=== PATIENT | female | born 1990 | race Two or more races ===

== ENCOUNTER 2019-04-04 22:48 | Observation (INO) | payer MEDICAID ==
[~2019-04-04] VITALS: Ht 165.1 cm; Wt 74.8 kg
[2019-04-04] MEDS ORDERED: FERR1TAB36 PO (23:22)
[2019-04-04] MEDS ORDERED: PREN-96 PO (23:22)
[2019-04-04 23:32] LABS: Urine Bacteria FEW /hpf (None Seen); Urine Blood 1+ /uL (Negative); Urine Hyaline Cast FEW /lpf (0 - 2); Urine Specific Gravity 1.005 (1.001-1.035); Urine WBC 353 /hpf (0 - 5); Urine WBC Clumps PRESENT /hpf (None Seen)
[2019-04-04 23:59] LABS: Alcohol, Urine < 3.0 mg/dL (0-5); Amphetamine Screen, Urine NEGATIVE (NEGATIVE); Barbiturate Scree,Urine NEGATIVE (NEGATIVE); Benzodiazephine Screen, Urine NEGATIVE (NEGATIVE); Cannabinoid Screen, Urine NEGATIVE (NEGATIVE); Cocaine Screen, Urine NEGATIVE (NEGATIVE); Opiate Scree,Urine NEGATIVE (NEGATIVE); Phencyclidine Screen, Urine NEGATIVE (NEGATIVE)
[2019-04-05] MEDS: BUTORPHANOL TARTRATE 2 MG/1 ML VIAL IV PRN ×2 (00:29→04:43)
[2019-04-05] MEDS ORDERED: ceFAZolin 1GM 2 GM in D5W 5% 100 ML IV ONE (00:45)
[2019-04-05] MEDS ORDERED: NIFEdipine 10 MG CAP PO ONE (00:45)
[2019-04-05] MEDS ORDERED: ceFAZolin 1GM/50ML 100 ML IV ONE (00:51)
[2019-04-05] MEDS ORDERED: NIFEdipine 10 MG CAP ONE (00:51)
[2019-04-05] MEDS ORDERED: TERBUTALINE SULFATE 1 MG/ML 1ML VIAL SC ONE ×2 (01:35→01:45)
[2019-04-05 04:06] LABS: Basophils # (auto) 0 uL; Basophils % (auto) 0.2 % (0.0-2.0); Eosinophils # (auto) 0 uL; Hematocrit 35.5 % (36.0-46.0); Hemoglobin 12.1 g/dL (12.2-16.2); Lymphocytes # (auto) 1.2 uL; Lymphocytes % (auto) 11.6 % (10.0-50.0); Mean Corpuscular Hemoglobin 28.8 pg (28.0-32.0); Mean Corpuscular Volume 84.8 fL (80.0-100.0); Monocytes # (auto) 1.1 uL; Neutrophils # (auto) 8.2 uL; Neutrophils % (auto) 78.2 % (37.0-80.0); Nucleated Red Blood Cells % 0.7 %; Platelet Count (auto) 200 10^3/uL (140-450); Red Blood Cells 4.19 10^6/uL (4.0-5.20); Red Cell Distribution Width 16.2 % (11.8-14.3); White Blood Cell 10.5 10^3/uL (4.4-10.8)
[2019-04-05 04:35] LABS: Albumin 2.2 g/dL (3.4-5.0); BUN/Creatinine Ratio 8.4; Potassium 3.4 mmol/L (3.5-5.1); Uric Acid 5.6 mg/dL (2.6-6.0)
[2019-04-05 04:37] LABS: Bilirubin, Total 0.4 mg/dL (0.2-1.0); Total Protein 6.2 g/dL (6.4-8.2)
== END 2019-04-05 04:46 | disposition short-term general hospital (02) | DRG 566 ==
LOC: LDRP 22:48
PROVIDERS: ADMIT Obstetrics & Gynecology; ATTEND Obstetrics & Gynecology
DX: O36.8330 Maternal care for abnormalities of the fetal heart rate or rhythm, third trimester, not applicable or unspecified (principal); O60.02 Preterm labor without delivery, second trimester; O26.892 Other specified pregnancy related conditions, second trimester; N13.30 Unspecified hydronephrosis; R06.82 Tachypnea, not elsewhere classified; R10.9 Unspecified abdominal pain; O99.89 Other specified diseases and conditions complicating pregnancy, childbirth and the puerperium; Z3A.27 27 weeks gestation of pregnancy
CPT/HCPCS: 36415; 59025; 76775; 76815; 80053; 80307; 81001; 81002; 84550; 85025; 96365; 96372; 96375; 96376; G0378; J0595; J0690; J3105; J7030; J7060; 96361